=== PATIENT | female | born 1940 | race Caucasian/White ===

== ENCOUNTER 2019-10-09 14:36 | Outpatient (CLI) | payer MEDICARE, OTHER, SELFPAY ==
--- NOTE | ~2019-10-09 | MM_ITS ---
EXAMINATION: MM screening katia BI w jeovany HISTORY: Screening mammogram TECHNIQUE: Craniocaudal and mediolateral oblique 3-D tomosynthesis images were obtained and synthetic 2-D images were generated. CAD analysis was submitted and interpreted. COMPARISON: No prior mammogram is available for comparison at this institution. BREAST PARENCHYMAL COMPOSITION: The breasts are almost entirely fatty. FINDINGS: RIGHT BREAST: An asymmetry is present in the middle third of the outer breast on the craniocaudal vie w 7 cm from the nipple. LEFT BREAST: There is a 3 mm mass in the anterior third of the breast best appreciated on mediolatera l oblique tomosynthesis image /73. IMPRESSION: 1. Bilateral breast findings which may represent the patient's baseline however no comparison is curr ently available. 2. Comparison with prior mammograms is necessary. BI-RADS Category 0: Incomplete: Needs additional imaging evaluation. Reviewed, dictated and finalized at location A. IMPRESSION: 1. Bilateral breast findings which may represent the patient's baseline however no comparison is currently available. 2. Comparison with prior mammograms is necessary. BI-RADS Category 0: Incomplete: Needs additional imaging evaluation.
--- NOTE | ~2019-10-09 | DEXA_ITS ---
Bone Density Report Name: Makenna Conn Age: 79 Sex: Female Ethnicity: Senia Date of : 1940 Indication: postmenopausal; height loss; prior fracture; hysterectomy; Referring Provider: John Cade Study: Bone densitometry was performed. Exam Date: October 09, 2019 Accession number: [id number] Bone Density: Region BMD T-score Z-score Classification AP Spine (L1, L2) 1.102 1.1 3.6 Normal Femoral Neck (Left) 0.815 -0.3 2.0 Normal Total Hip (Left) 0.962 0.2 2.2 Normal Total Hip Bilateral Avg 0.991 0.4 2.5 Normal Femoral Neck (Right) 0.837 -0.1 2.2 Normal Total Hip (Right) 1.018 0.6 2.7 Normal World Health Organization criteria for BMD impression classify patients as: Normal (T-score at or above -1.0), Osteopenia (T-score between -1.0 and -2.5), or Osteoporosis (T-score at or below -2.5). 10-year Fracture Risk: FRAX not reported because: All T-scores for Spine Total, Hip Total, Femoral Neck at or above -1.0 Previous Exams: Region Exam Age BMD T-score BMD Change BMD Change Date g/cm2 vs Baseline vs Previous AP Spine(L1, L2) 10/09/2019 79 1.102 1.1 0.066(6.3%)# 0.092(9.1%)# 01/15/2011 70 1.010 0.3 -0.026(-2.6%)* -0.026(-2.6%)* 12/27/2007 67 1.036 0.5 Total Hip(Left) 10/09/2019 79 0.962 0.2 -0.053(-5.2%)# -0.017(-1.7%)# 01/15/2011 70 0.978 0.3 -0.036(-3.5%)* -0.036(-3.5%)* 12/27/2007 67 1.014 0.6 Total Hip(Right) 10/09/2019 79 1.018 0.6 -0.043(-4.1%)# -0.017(-1.6%)# 01/15/2011 70 1.035 0.8 -0.027(-2.5%) -0.027(-2.5%) 12/27/2007 67 1.061 1.0 *Denotes significance at 95% confidence level, LSC for AP Spine = 0.022 g/cm2, LSC for Total Hip = 0.027 g/cm2 Clinical Information Provided by Patient: Has had a low trauma fracture Has the following medical conditions: Hysterectomy Patient maximum height was 64 Menopause Age: 49 Drinks caffeinated beverages Onset of menses at age 12 Number of children 2 Impression: The patient has normal bone mass. The patient has risk factors, including: previous fracture. No significant bone loss was observed. Discussion: BONE DENSITY IS ABOVE THE MINIMUM DESIRABLE LEVEL AT ALL SKELETAL SITES TESTED. This patient?s bone mineral density is above the minimum desirable level (T-score -1.0 or better) at all sites measured. The patient should follow a healthful lifestyle (good nutrition with adequate calcium and vitamin D, and appropriate weight-bearing exe
== END 2019-10-09 14:37 | disposition home or self-care (01) ==
PROVIDERS: PCP Family Medicine; Visit Provider Family Medicine
DX: Z12.31 Encounter for screening mammogram for malignant neoplasm of breast (principal); Z78.0 Asymptomatic menopausal state; R92.8 Other abnormal and inconclusive findings on diagnostic imaging of breast
CPT/HCPCS: 77063; 77067; 77080